=== PATIENT | male | born 1990 | race Caucasian/White ===

== ENCOUNTER 2017-12-14 09:00 | Emergency (ER) | payer SELFPAY ==
[2017-12-14 09:00] VITALS: BP 157/86; PULSE 74; RESP 16; TEMP 36.3; O2SAT 99; BMI 33.0
--- NOTE | 2017-12-14 09:53 | ED.DCSUM_ITS ---
- ER Visit Summary Date of Service: 12/14/17 Chief Complaint: Right lower molar dental pain for 1 month History of Present Illness: The patient is a 27 M. Dental pain. Does not have a dentist or primary care physician. Currently is uninsured but he is working on getting insurance at the end of December. States he has had right lower molar pain for a month. Denies any trauma or fever. No significant jaw swelling. He is just looking for something for relief. Physical Examination: Well appearing young male. Vital signs are stable afebrile. H EENT exam is right lower molar is eroded all the way down to the gumline and even lower. He has a large cavity. Needs to be extracted. There is no bleeding. No purulent discharge. Only mild swelling. Left lower molar also has a large cavity. Otherwise dentition looks pretty good. There is no obvious abscess. No trismus. He can breathe and swallow easily. There is no swelling of the soft tissues underneath his tongue. There is no lymphadenopathy. There is no significant facial or jaw swelling. The right TM is normal. Neck nontender no lymphadenopathy. Lungs clear to auscultation bilaterally. Heart regular rhythm no murmur. Otherwise exam unremarkable. Test Results: None Emergency Department Course and Treatment: Prescription for Naprosyn 1 dose here for home. He will be instructed to follow-up either starts with dental clinic or Dr. Fields. Treatment Plan: Naprosyn 500 twice daily for pain 30 no refill. Disposition: Discharge Impression: Acute right lower molar dental pain secondary to cavity decay This note was generated with [employer] dictation software. It may contain incorrect words, spelling, and punctuation that were not noted in review of the chart prior to signing ED Disposition - Plan for ED Patient: Chief Complaint: Dental Referrals: Care Physician,No Primary [Primary Care Provider] -
--- NOTE | 2017-12-14 09:53 | ED.DEP ---
ED Disposition - Plan for ED Patient: Chief Complaint: Dental Instructions: ED Tooth Pain, ED Cavity Dental Prescriptions: Naproxen [Naprosyn] 500 mg PO BID PRN PRN #30 tab PRN Reason: Pain Referrals: Dian Colby [NON-STAFF] - As soon as possible Balwinder Fields DDS [STAFF PHYSICIAN] - As soon as possible Additional Instructions: Dr. Fields is an oral surgeon he can pull your right lower molar. Dian start some and dental clinic and specifically set up for people that are uninsured. Naprosyn for pain. Ice to your jaw.
[2017-12-14] MEDS: Naproxen 250 MG Tablet 500 MG PO (10:02)
== END 2017-12-14 10:07 | disposition home or self-care (01) ==
PROVIDERS: Emergency Provider Emergency Medicine
DX: K08.89 Other specified disorders of teeth and supporting structures (principal); K02.9 Dental caries, unspecified; Z72.0 Tobacco use
CPT/HCPCS: 99283

== ENCOUNTER 2018-05-10 09:21 | Emergency (ER) | payer SELFPAY ==
[2018-05-10 09:22] VITALS: BP 159/87; PULSE 90; RESP 18; TEMP 36.1; O2SAT 98; BMI 32.3
--- NOTE | 2018-05-10 09:31 | ED.VISSUMM ---
- ER Visit Summary Date of Service: 05/10/18 Chief Complaint: [Dental pain] History of Present Illness: The patient is a 28 M [presents with dental pain and concern for infection. Patient states that he has a broken tooth right lower molar that has been broken and bothersome for about 4-5 months. Patient states that he recently changed jobs and is waiting for insurance to kick in. Patient states his insurance kicks in on May 22 and he will make a dentist appointment. Today he woke up and had a bad taste in his mouth and when he put a Q-tip around his broken tooth he noticed some what look like purulent drainage. Patient denies recent fever.] Physical Examination: [HEENT-PERRLA, EOMI. Cranial nerves II through XII grossly intact. TMs clear. Mucous membranes moist. No adenopathy. Dentition-patient has a broken and tender right lower third molar. There is some faint gingival erythema. No obvious abscess noted. No trismus on exam. No adenopathy. Cardiovascular-regular rate and rhythm without murmur or ectopy Lungs-clear to auscultation, chest wall stable without crepitus or subcu emphysema Abdomen-normoactive bowel sounds, soft, nontender, no rebound or rigidity, no peritoneal signs. Extremities-intact ?4, normal range of motion, normal pulses, atraumatic] Test Results: [None indicated] Emergency Department Course and Treatment: [Patient was started on clindamycin] Treatment Plan: [Clindamycin and recommended follow-up with dentist] Disposition: [Discharged home in stable condition] Impression: [Dental pain] This note was generated with [employer] dictation software. It may contain incorrect words, spelling, and punctuation that were not noted in review of the chart prior to signing ED Disposition - Plan for ED Patient: Chief Complaint: Dental Referrals: Care Physician,No Primary [Primary Care Provider] -
--- NOTE | 2018-05-10 09:34 | ED.DCSUM_ITS ---
- ER Visit Summary Date of Service: 05/10/18 Chief Complaint: [Dental pain] History of Present Illness: The patient is a 28 M [presents with dental pain and concern for infection. Patient states that he has a broken tooth right lower molar that has been broken and bothersome for about 4-5 months. Patient states that he recently changed jobs and is waiting for insurance to kick in. Patient states his insurance kicks in on May 22 and he will make a dentist appointment. Today he woke up and had a bad taste in his mouth and when he put a Q-tip around his broken tooth he noticed some what look like purulent drainage. Patient denies recent fever.] Physical Examination: [HEENT-PERRLA, EOMI. Cranial nerves II through XII grossly intact. TMs clear. Mucous membranes moist. No adenopathy. Dentition- patient has a broken and tender right lower third molar. There is some faint gingival erythema. No obvious abscess noted. No trismus on exam. No adenopathy. Cardiovascular-regular rate and rhythm without murmur or ectopy Lungs-clear to auscultation, chest wall stable without crepitus or subcu emphysema Abdomen-normoactive bowel sounds, soft, nontender, no rebound or rigidity, no peritoneal signs. Extremities-intact ?4, normal range of motion, normal pulses, atraumatic] Test Results: [None indicated] Emergency Department Course and Treatment: [Patient was started on clindamycin] Treatment Plan: [Clindamycin and recommended follow-up with dentist] Disposition: [Discharged home in stable condition] Impression: [Dental pain] This note was generated with [employer] dictation software. It may contain incorrect words, spelling, and punctuation that were not noted in review of the chart prior to signing ED Disposition - Plan for ED Patient: Chief Complaint: Dental Referrals: Care Physician,No Primary [Primary Care Provider] -
--- NOTE | 2018-05-10 09:34 | ED.DEP ---
ED Disposition - Plan for ED Patient: Chief Complaint: Dental Instructions: ED Tooth Pain Prescriptions: Clindamycin HCl [Cleocin] 300 mg PO Q6H #40 cap Referrals: Care Physician,No Primary [Primary Care Provider] - Additional Instructions: see a dentist
[2018-05-10] MEDS: Clindamycin HCl 150 MG Capsule 300 MG PO (09:44)
[2018-05-10 09:47] VITALS: BP 123/67; PULSE 79; RESP 15; O2SAT 98
== END 2018-05-10 09:47 | disposition home or self-care (01) ==
PROVIDERS: Emergency Provider Emergency Medicine
DX: K08.89 Other specified disorders of teeth and supporting structures (principal); S02.5XXA Fracture of tooth (traumatic), initial encounter for closed fracture; K02.9 Dental caries, unspecified; X58.XXXA Exposure to other specified factors, initial encounter; Y93.9 Activity, unspecified; Y92.9 Unspecified place or not applicable; Z72.0 Tobacco use
CPT/HCPCS: 99283

== ENCOUNTER 2019-05-29 22:48 | Emergency (ER) | payer OTHER, SELFPAY ==
[2019-05-29 22:49] VITALS: BP 147/94; PULSE 101; RESP 16; TEMP 35.8; O2SAT 99; BMI 34.6
--- NOTE | 2019-05-29 22:59 | ED.VIS.GEN ---
History of Present Illness Chief Complaint: Dental Narrative: Patient is a 29-year-old male who presents with dental pain. This began about 2 hours ago. He has been having pain with 1 of his molars but tonight about 2 hours ago his left mandibular second premolar chipped. He has complained of severe pain since that time. He otherwise denies recent illness. No fevers nausea vomiting. No facial or jaw swelling. No drainage. Past Medical History - Allergies and Home Meds Allergies/Adverse Reactions: Allergies No Known Allergies Allergy (Verified 05/29/19 22:49) Primary Care Physician: Care Physician,No Primary [Primary Care Provider] - Past Medical History: None Surgical History: noncontributory Smoking Status: Current every day smoker Review of Systems All systems negative except as indicated General: Denies: Fever ENT: Reports: - - Dental pain Cardiovascular: Denies: Chest pain Respiratory: Denies: Dyspnea Gastrointestinal: Denies: Nausea, Vomiting Physical Exam Vital Signs/Narrative: Vital Signs Temp Pulse Resp BP Pulse Ox 05/29/19 22:49 96.4 F L 101 H 16 147/94 H 99 Inital Vital Signs reviewed: Yes General: Well nourished, - - Patient appears in pain holding the left side of his face Head: Normocephalic Eyes: EOMI ENT: Moist mucous membranes, - - Patient has a fracture of the posterior portion of the left mandibular second premolar, Alba III Cardiovascular: Regular rate Respiratory: No distress Skin: Normal color Neurological: Alert Psychological: Normal affect Diagnostic/Tx/Re-eval - Medical Decision Making Patient does appear to be in pain. He has a fracture to the pulp. However this is only on the posterior portion and is not really amenable to dical application. He does not have evidence of infection. There is no soft tissue swelling or drainage. He was given Chadwicks here for pain. He was given a prescription for the same as well as prophylactic antibiotics. He was given a list of dental clinics in the area. I stressed the importance of follow-up with dentistry and patient was discharged. ED Disposition - Plan for ED Patient: Disposition: Home or Assisted Living Diagnosis: Tooth fracture Instructions: Dental Pain Prescriptions: Hydrocodone Bitart/Apap 5-325 [Chadwicks 5MG-325MG] 1 tab PO Q6H PRN 3 Days #12 tab PRN Reason: Pain Prescription Printed Penicillin V Potassium 500 mg PO 4X/DAY #40 tab Prescription Printed Referrals: Care Physician,No Primary [Primary Care Provider] -
[2019-05-29] MEDS: HYDROcodone Bitartrate/Apap 5/325 Tablet PO (23:07)
[2019-05-29 23:20] VITALS: RESP 17
== END 2019-05-29 23:21 | disposition home or self-care (01) ==
LOC: ED 23:12
PROVIDERS: Emergency Provider Emergency Medicine
DX: S02.5XXA Fracture of tooth (traumatic), initial encounter for closed fracture (principal); X58.XXXA Exposure to other specified factors, initial encounter; Y93.9 Activity, unspecified; Y92.9 Unspecified place or not applicable; F17.200 Nicotine dependence, unspecified, uncomplicated
CPT/HCPCS: 99283